=== PATIENT | male | born 1955 | race Caucasian/White ===

== ENCOUNTER 2017-03-01 13:29 | Emergency (ER) | payer SELFPAY ==
[2017-03-01] MEDS ORDERED: AMIODARONE HCL 150 MG/3 ML VIAL IV ONE (13:30)
[2017-03-01] MEDS ORDERED: ATROPINE SULFATE 1 MG/10 ML SYRINGE IV ONE (13:30)
[2017-03-01] MEDS ORDERED: CALCIUM CHLORIDE 10% SOLN 1 GRAM/10 ML SYR IV ONE (13:30)
[2017-03-01] MEDS ORDERED: EPINEPHrine HCL (1:10,000) 1 MG/10 ML SYRINGE IV ONE (13:30)
--- NOTE | 2017-03-01 13:48 | PD ---
HPI Chief Complaint: Code Blue Time Seen by Provider: 13:43 Travel History International Travel<30 days: No Contact w/Intl Traveler<30days: No Traveled to known affect area: No History of Present Illness HPI This 61-year-old male is brought here in cardiac arrest. Report from paramedics is that he was witnessed to collapse nearby. First responders found him pulseless and apneic. CPR was initiated. He was given repeated doses of adrenaline, sodium bicarbonate en route. He was noted to have occasional slow complexes without a pulse. He has not been a patient here before. We do not have any medical history on this patient. [facility] Past Medical History Medical History: Unable to Obtain Past Surgical History Surgical History: Unable to Obtain Social History Tobacco Use: No Review of Systems ROS Limitations: Unresponsive Physical Exam Narrative GENERAL: Somewhat disheveled male in CPR SKIN: Focused skin assessmentcool HEAD: Atraumatic. Normocephalic. EYES: Pupils are fixed and dilated ENT: No nasal bleeding or discharge. Mucous membranes pink and moist. NECK: Trachea midline. No JVD. CARDIOVASCULAR: No heart tones RESPIRATORY: Persistent ventilations. GASTROINTESTINAL: Abdomen soft, , nondistended. Hepatic and splenic margins not palpable. MUSCULOSKELETAL: No obvious deformities. No clubbing. No cyanosis. No edema. NEUROLOGICAL: Unresponsive MDM Medical Decision Making Medical Screen Exam Complete: Yes Emergency Medical Condition: Yes Medical Record Reviewed: Yes Differential Diagnosis Differential includes cardiopulmonary arrest, acute [place], PE Narrative Course CPR was continued via ACLS protocols. Patient has been pronounced Procedures Procedure Narrative Patient arrived with CPR in progress. He was not intubated on arrival as he got into the room CPR was continued. He was given repeated doses of adrenaline. Endotracheal intubation was obtained using direct laryngoscopy by myself. After intubation there were bilateral breath sounds he did have a transient pulse complexes at a rate of 180. This quickly deteriorated into ventricular fibrillation. He was defibrillated but did not regain a perfusing rhythm. He had occasional complexes which were not perfused. CPR was continued with additional doses of adrenaline. Patient did not respond this medication. He remained pulseless and apneic and has been pronounced at 1342 Diagnosis Primary Impression: Cardiopulmonary arrest Disposition: 20 Condition: Blanco Brooks MD Mar 01, 2017 13:48
--- NOTE | 2017-03-01 13:48 | PD ---
HPI Chief Complaint: Code Blue Time Seen by Provider: 13:43 Travel History International Travel<30 days: No Contact w/Intl Traveler<30days: No Traveled to known affect area: No History of Present Illness HPI This 61-year-old male is brought here in cardiac arrest. Report from paramedics is that he was witnessed to collapse nearby. First responders found him pulseless and apneic. CPR was initiated. He was given repeated doses of adrenaline, sodium bicarbonate en route. He was noted to have occasional slow complexes without a pulse. He has not been a patient here before. We do not have any medical history on this patient. [facility] Past Medical History Medical History: Unable to Obtain Past Surgical History Surgical History: Unable to Obtain Social History Tobacco Use: No Review of Systems ROS Limitations: Unresponsive Physical Exam Narrative GENERAL: Somewhat disheveled male in CPR SKIN: Focused skin assessmentcool HEAD: Atraumatic. Normocephalic. EYES: Pupils are fixed and dilated ENT: No nasal bleeding or discharge. Mucous membranes pink and moist. NECK: Trachea midline. No JVD. CARDIOVASCULAR: No heart tones RESPIRATORY: Persistent ventilations. GASTROINTESTINAL: Abdomen soft, , nondistended. Hepatic and splenic margins not palpable. MUSCULOSKELETAL: No obvious deformities. No clubbing. No cyanosis. No edema. NEUROLOGICAL: Unresponsive MDM Medical Decision Making Medical Screen Exam Complete: Yes Emergency Medical Condition: Yes Medical Record Reviewed: Yes Differential Diagnosis Differential includes cardiopulmonary arrest, acute [place], PE Narrative Course CPR was continued via ACLS protocols. Patient has been pronounced Procedures Procedure Narrative Patient arrived with CPR in progress. He was not intubated on arrival as he got into the room CPR was continued. He was given repeated doses of adrenaline. Endotracheal intubation was obtained using direct laryngoscopy by myself. After intubation there were bilateral breath sounds he did have a transient pulse complexes at a rate of 180. This quickly deteriorated into ventricular fibrillation. He was defibrillated but did not regain a perfusing rhythm. He had occasional complexes which were not perfused. CPR was continued with additional doses of adrenaline. Patient did not respond this medication. He remained pulseless and apneic and has been pronounced at 1342 Diagnosis Primary Impression: Cardiopulmonary arrest Disposition: 20 Condition: Blanco Brooks MD Mar 01, 2017 13:48
--- NOTE | 2017-03-01 13:48 | PD ---
HPI Chief Complaint: Code Blue Time Seen by Provider: 13:43 Travel History International Travel<30 days: No Contact w/Intl Traveler<30days: No Traveled to known affect area: No History of Present Illness HPI This 61-year-old male is brought here in cardiac arrest. Report from paramedics is that he was witnessed to collapse nearby. First responders found him pulseless and apneic. CPR was initiated. He was given repeated doses of adrenaline, sodium bicarbonate en route. He was noted to have occasional slow complexes without a pulse. He has not been a patient here before. We do not have any medical history on this patient. [facility] Past Medical History Medical History: Unable to Obtain Past Surgical History Surgical History: Unable to Obtain Social History Tobacco Use: No Review of Systems ROS Limitations: Unresponsive Physical Exam Narrative GENERAL: Somewhat disheveled male in CPR SKIN: Focused skin assessmentcool HEAD: Atraumatic. Normocephalic. EYES: Pupils are fixed and dilated ENT: No nasal bleeding or discharge. Mucous membranes pink and moist. NECK: Trachea midline. No JVD. CARDIOVASCULAR: No heart tones RESPIRATORY: Persistent ventilations. GASTROINTESTINAL: Abdomen soft, , nondistended. Hepatic and splenic margins not palpable. MUSCULOSKELETAL: No obvious deformities. No clubbing. No cyanosis. No edema. NEUROLOGICAL: Unresponsive MDM Medical Decision Making Medical Screen Exam Complete: Yes Emergency Medical Condition: Yes Medical Record Reviewed: Yes Differential Diagnosis Differential includes cardiopulmonary arrest, acute [place], PE Narrative Course CPR was continued via ACLS protocols. Patient has been pronounced Procedures Procedure Narrative Patient arrived with CPR in progress. He was not intubated on arrival as he got into the room CPR was continued. He was given repeated doses of adrenaline. Endotracheal intubation was obtained using direct laryngoscopy by myself. After intubation there were bilateral breath sounds he did have a transient pulse complexes at a rate of 180. This quickly deteriorated into ventricular fibrillation. He was defibrillated but did not regain a perfusing rhythm. He had occasional complexes which were not perfused. CPR was continued with additional doses of adrenaline. Patient did not respond this medication. He remained pulseless and apneic and has been pronounced at 1342 Diagnosis Primary Impression: Cardiopulmonary arrest Disposition: 20 Condition: Blanco Brooks MD Mar 01, 2017 13:48
== END 2017-03-01 16:37 | disposition expired ==
LOC: PHED 13:29
DX: I46.9 Cardiac arrest, cause unspecified (principal); I49.01 Ventricular fibrillation
CPT/HCPCS: 31500; 92950; 99285; J0171; J0282; J0461